=== PATIENT | female | born 1985 | race Caucasian/White ===

== ENCOUNTER 2018-09-28 08:47 | Outpatient (CLI) | payer BC ==
[~2018-09-28] VITALS: Ht 170.2 cm; Wt 80.5 kg
[~2018-09-28 08:47] MED LIST: BENZONATATE100 MG PO; LANSINOH FOR BR1 OIN TP; LORATAB; LORTAB 5/500 501 TAB PO; MOTRIN 800800 MG/TAB PO; PERCOCET 325 MG1 TA2 PO; PERCOCET 5/321 UDTAB PO; PHENERGAN 25 TA25 MG PO; PHENERGAN25 MG RC; PRENATAL1 TA1 PO; PRENATAL1 TA5 PO; SENOKOT S 50 MG1 TAB PO; TAMIFLU 75MG75 MG PO; TOPAMAX 100MG100 MG PO; ZITHROMAX1 GM/PACKE PO
--- NOTE | 2018-09-28 08:50 | NUR ---
Pt arrives on unit ambulatory with spouse. States vaginal bleeding at 0400 with mucus that continued early into the morning. Reports good movement. Unsure of LOF. Denies regular contractions. Changed into a clean gown. EFM and toco applied. VSS. Amniotest negative. SVE per this RN /-3. No blood noted on glove. Admission assessment completed. Dr. Leroy notified of pt status. Orders to monitor x1 and recheck SVE.
[2018-09-28 09:30] VITALS: BP 111/71; PULSE 96; TEMP 97.9
[2018-09-28 10:30] VITALS: BP 111/70; PULSE 77
--- NOTE | 2018-09-28 11:05 | NUR ---
SVE unchanged. Orders for discharge. Pt taken off monitors. Discharge instruction given. No questions or concerns. Pt leaves unit ambulatory with spouse.
[2018-09-28 11:08] VITALS: BP 115/74; PULSE 87
== END 2018-09-28 11:15 | disposition home or self-care (01) ==
LOC: LDRO 08:47
DX: O46.93 Antepartum hemorrhage, unspecified, third trimester (principal); Z3A.37 37 weeks gestation of pregnancy

== ENCOUNTER → 2021-12-03 | Outpatient (CLI) | payer BC ==
[~2021-12-03] MED LIST changes: +PRENATAL MVI PO
== END ==
LOC: MC.RAD 10:52
DX: N63.21 Unspecified lump in the left breast, upper outer quadrant (principal)

== ENCOUNTER → 2021-12-04 | Outpatient (CLI) | payer BC | LOC: MC.RAD 09:47 | DX: N63.20 Unspecified lump in the left breast, unspecified quadrant (principal); Z98.82 Breast implant status | CPT/HCPCS: A4648 ==